=== PATIENT | female | born 1980 | race Caucasian/White ===

== ENCOUNTER 2017-03-24 08:17 | Emergency (ER) | payer BC ==
[2017-03-24 08:25] VITALS: BP 151/88
[2017-03-24] MEDS ORDERED: IBUPROFEN 400 MG TABLET PO STA (09:03)
[2017-03-24] MEDS ORDERED: ACETAMINOPHEN 325 MG TABLET PO STA (09:03)
--- NOTE | 2017-03-24 09:06 | ED Physician Documentation ---
History of Present Illness - Stated complaint Stated Complaint: RT ANKLE INJ - Chief complaint Chief Complaint: Ext Problem - Additonal information Additional information: hx from pt 36 f denies preg slipped on wet stairs and fell hurting R ankle and R 4th finger distal phalange no head or neck or chest or abd injury Review of Systems : denies: Now EGA Musculoskeletal: reports: Extremity pain, Joint pain, Pain with weight bearing PD PAST MEDICAL HISTORY - Present Medications Home Medications: Ambulatory Orders Medication Instructions Recorded Confirmed Escitalopram Oxalate [Lexapro] 20 mg PO DAILY 03/24/17 03/24/17 Ibuprofen [Motrin] 400 mg PO Q6H PRN #30 tablet 03/24/17 Lisinopril 2.5 mg PO DAILY 03/24/17 03/24/17 Pravastatin [Pravachol] 10 mg PO DAILY 03/24/17 03/24/17 clonazePAM [KlonoPIN] 1 mg PO DAILY 03/24/17 03/24/17 traMADol [Ultram] 50 mg PO Q6H PRN #15 tablet 03/24/17 - Allergies Allergies/Adverse Reactions: Allergies Allergy/AdvReac Type Severity Reaction Status Date / Time No Known Drug Allergies Allergy Verified 03/24/17 08:25 PD ED PE NORMAL - Vitals Vital signs reviewed: Yes - Cardiac Cardiac: RRR - Respiratory Respiratory: No respiratory distress, Clear bilaterally - Extremities Extremities: Other (R 4th finger, nl ROM, nl cascade, TTP DIP and distal phalange, slightly dec sensation, brisk cap refill, R ankle TTP siddharth mall lateral > mediual, no prox tib fib pain, no foot TTP, MSV intact, no sig swelling or deformity) Results - Vitals Vitals: Vital Signs - 24 hr 03/24/17 08:22 Temperature 36.0 C L Heart Rate 80 Respiratory 16 Rate Blood Pressure 151/88 H O2 Saturation 100 Oxygen O2 Source Room air - Rads (name of study) ankle Radiology: See rad report (medial mall fx) finger Radiology: See rad report (neg) Procedures - Splint (location) short leg Splint applied by: Tech Type of splint: Short leg, Posterior, Stirrup Other: Patient tolerated well, No complications, Neurovascular intact, Crutches provided Departure - Departure Disposition: 01 Home, Self Care Clinical Impression: Fracture, ankle Qualifiers: Encounter type: initial encounter Fracture type: closed Laterality: right Qualified Code(s): S82.891A - Other fracture of right lower leg, initial encounter for closed fracture Condition: Good Instructions: ED Fx Ankle General, ED Crutch Walking, ED Splint Care Fiberglass Follow-Up: Aura Guerin PA [Primary Care Provider] - [facility] [Provider Group] (you need to call Monday to schedule ) Prescriptions: Ibuprofen [Motrin] 400 mg PO Q6H PRN #30 tablet PRN Reason: Pain traMADol [Ultram] 50 mg PO Q6H PRN #15 tablet PRN Reason: Severe Pain Comments: You have a broken ankle. You need to wear the splin for the weekend, use the crutches, not bear any weight at all. Next week you need to follow up with orthopedics to be changed to a cast. The pain will be less now that the anlke is immobilized For mild pain you can take tylenol and motrion For severe pain you can take tramadol but try to minimize your use of this medication if possible Also your blood pressure is high today - please follow up with your PMD for a recheck Forms: Activity restrictions
[2017-03-24] MEDS ORDERED: IBUPROFEN 400 MG TABLET PO ONE (09:33)
[2017-03-24] MEDS ORDERED: ACETAMINOPHEN 325 MG TABLET PO ONE (09:33)
--- NOTE | 2017-03-24 09:43 | XRAY Preliminary Report ---
Exam: XR HAND 3 VIEW RT IMPRESSION: No fracture or radiopaque foreign body in the subcutaneous tissue. [facility] SITE ID: [id number]
--- NOTE | 2017-03-24 09:46 | XRAY Report ---
EXAM: RIGHT HAND RADIOGRAPHY EXAM DATE: 03/24/2017 09:26 AM. CLINICAL HISTORY: Pain 3rd finger. COMPARISON: None. TECHNIQUE: 3 views. FINDINGS: Bones: Normal. No fractures or bone lesions. Joints: Normal. No subluxations. Soft Tissues: Normal. No soft tissue swelling. IMPRESSION: No fracture or radiopaque foreign body in the subcutaneous tissue. [facility] Referring Provider Line: [phone] SITE ID: [id number]
--- NOTE | 2017-03-24 09:47 | XRAY Preliminary Report ---
Exam: XR ANKLE 3 VIEW RT IMPRESSION: Minimally displaced fracture of the medial malleolus. [facility] SITE ID: [id number]
--- NOTE | 2017-03-24 09:50 | XRAY Report ---
EXAM: RIGHT ANKLE RADIOGRAPHY EXAM DATE: 03/24/2017 09:25 AM. CLINICAL HISTORY: Pain, s/p glf. COMPARISON: None. TECHNIQUE: 4 views. FINDINGS: Bones: Minimally displaced fracture of the medial malleolus. Joints: Trace joint effusion. Soft Tissues: Mild soft tissue swelling along the medial aspect of the ankle. IMPRESSION: Minimally displaced fracture of the medial malleolus. [facility] Referring Provider Line: [phone] SITE ID: [id number]
== END 2017-03-24 11:56 | disposition home or self-care (01) ==
LOC: ED 08:17
DX: S82.51XA Displaced fracture of medial malleolus of right tibia, initial encounter for closed fracture (principal); S69.91XA Unspecified injury of right wrist, hand and finger(s), initial encounter; W10.9XXA Fall (on) (from) unspecified stairs and steps, initial encounter
CPT/HCPCS: 29515; 73130; 73610; 99283; A9270

== ENCOUNTER 2017-10-02 07:46 | Outpatient (CLI) | payer BC | END 2017-10-02 07:47 | disposition home or self-care (01) | LOC: LAB.F 07:46 | PROVIDERS: ATTEND Surgery | DX: Z01.812 Encounter for preprocedural laboratory examination (principal); E46 Unspecified protein-calorie malnutrition; E63.9 Nutritional deficiency, unspecified; Z13.0 Encounter for screening for diseases of the blood and blood-forming organs and certain disorders involving the immune mechanism | CPT/HCPCS: 36415; 80053; 80061; 82306; 82607; 82728; 82746; 83036; 83540; 83721; 84425; 84443; 84466; 84481; 85025; 85610; 85730 ==

== ENCOUNTER 2017-10-04 08:20 | Outpatient (CLI) | payer BC ==
[2017-10-04 09:47] LABS: BASOPHILS % (AUTO) 0.5 %; EOSINOPHILS # (AUTO) 0.1 10^3/uL (0.0-0.7); EOSINOPHILS % (AUTO) 1.7 %; HGB - HEMOGLOBIN 12.9 g/dL (12.0-16.0); LYMPHOCYTES % (AUTO) 25.4 %; MEAN CORPUSCULAR HEMOGLOBIN 27.7 pg (27.0-31.0); MEAN CORPUSCULAR HGB CONC 33.3 g/dL (32.0-36.0); MEAN CORPUSCULAR VOLUME 83.3 fL (81.0-99.0); MEAN PLATELET VOLUME 8.3 fL (7.9-10.8); MONOCYTES # (AUTO) 0.4 10^3/uL (0.0-1.0); MONOCYTES % (AUTO) 4.9 %; NEUTROPHILS # (AUTO) 5.2 10^3/uL (1.5-6.6); NEUTROPHILS % (AUTO) 67.5 %; PLT - PLATELET COUNT 256 10^3/uL (130-450); RED BLOOD COUNT 4.65 10^6/uL (4.20-5.40); RED CELL DISTRIBUTION WIDTH 13.5 % (12.0-15.0); WHITE BLOOD COUNT 7.7 x10^3/uL (4.8-10.8)
[2017-10-04 09:54] LABS: INR 1.1 (0.8-1.2); PT - PROTHROMBIN TIME 12.4 secs (9.9-12.6)
[2017-10-04 10:04] LABS: % IRON SATURATION 11 % (20-50); ALBUMIN/GLOBULIN RATIO 1.1 (1.0-2.2); ALKALINE PHOSPHATASE 63 IU/L (42-121); ALT ALANINE AMINOTRANSFERASE 20 IU/L (10-60); AST ASPARTATE AMINOTRANSFERASE 22 IU/L (10-42); BILIRUBIN,TOTAL 0.5 mg/dL (0.2-1.0); BUN - BLOOD UREA NITROGEN 12 mg/dL (6-20); CALCIUM 8.8 mg/dL (8.5-10.3); CARBON DIOXIDE - CO2 24 mmol/L (21-32); CHLORIDE 100 mmol/L (101-111); CHOL/HDL RATIO 5.1 (<4.4); CHOLESTEROL 199 mg/dL; CREATININE 0.6 mg/dL (0.4-1.0); GFR - MDRD 111 (>89); GLUCOSE 92 mg/dL (70-100); HDL CHOLESTEROL 39 mg/dL; IRON 43 ug/dL (28-170); LDL CHOLESTEROL,CALCULATED 105 mg/dL; LDL/HDL RATIO 2.7 (<4.4); SODIUM 134 mmol/L (135-145); TOTAL IRON BINDING CAPACITY 392 ug/dL (250-450); TOTAL PROTEIN 7.5 g/dL (6.7-8.2); TRANSFERRIN 280 mg/dL (192-382); VLDL CHOLESTEROL 55 mg/dL
[2017-10-04 10:11] LABS: HB2 TOTAL 14.3 g/dL; HEMOGLOBIN A1C 0.49 g/dL; HEMOGLOBIN A1C % 5.3 % (4.6-6.2)
[2017-10-04 10:15] LABS: THYROID STIMULATING HORMONE 2.86 uIU/mL (0.34-5.60)
[2017-10-04 10:22] LABS: FERRITIN 18.4 ng/mL (11.0-306.8)
[2017-10-04 10:26] LABS: FOLATE 23.09 ng/mL (5.90 - >24.8)
== END 2017-10-04 08:21 | disposition home or self-care (01) ==
LOC: LAB 08:20
PROVIDERS: ATTEND Surgery
DX: Z01.812 Encounter for preprocedural laboratory examination (principal); E46 Unspecified protein-calorie malnutrition; Z13.0 Encounter for screening for diseases of the blood and blood-forming organs and certain disorders involving the immune mechanism
CPT/HCPCS: 36415; 80053; 80061; 82306; 82607; 82728; 82746; 83036; 83540; 83721; 84436; 84443; 84466; 84481; 85025; 85610; 85730

== ENCOUNTER 2017-10-06 08:23 | Outpatient (CLI) | payer BC | END 2017-10-06 08:24 | disposition home or self-care (01) | LOC: LAB 08:23 | PROVIDERS: ATTEND Surgery | DX: Z01.812 Encounter for preprocedural laboratory examination (principal); Z13.0 Encounter for screening for diseases of the blood and blood-forming organs and certain disorders involving the immune mechanism; E46 Unspecified protein-calorie malnutrition; E63.9 Nutritional deficiency, unspecified | CPT/HCPCS: 84425 ==

== ENCOUNTER 2017-10-13 07:55 | Outpatient (CLI) | payer BC | END 2017-10-13 07:56 | disposition home or self-care (01) | LOC: LAB.F 07:55 | PROVIDERS: ATTEND Registered Nurse Community Health | DX: Z01.812 Encounter for preprocedural laboratory examination (principal); E63.9 Nutritional deficiency, unspecified | CPT/HCPCS: 36415; 84425; 85730; 93005 ==

== ENCOUNTER 2018-05-10 08:59 | Outpatient (CLI) | payer BC ==
[2018-05-10 17:53] LABS: BASOPHILS % (AUTO) 0.4 %; EOSINOPHILS # (AUTO) 0.1 10^3/uL (0.0-0.7); EOSINOPHILS % (AUTO) 0.9 %; LYMPHOCYTES # (AUTO) 1.3 10^3/uL (1.5-3.5); LYMPHOCYTES % (AUTO) 23.1 %; MEAN CORPUSCULAR HEMOGLOBIN 28.5 pg (27.0-31.0); MEAN CORPUSCULAR HGB CONC 32.1 g/dL (32.0-36.0); MEAN CORPUSCULAR VOLUME 88.7 fL (81.0-99.0); MEAN PLATELET VOLUME 10.4 fL (7.9-10.8); MONOCYTES # (AUTO) 0.3 10^3/uL (0.0-1.0); MONOCYTES % (AUTO) 5.8 %; NEUTROPHILS # (AUTO) 3.9 10^3/uL (1.5-6.6); NEUTROPHILS % (AUTO) 69.8 %; PLT - PLATELET COUNT 228 10^3/uL (130-450); RED BLOOD COUNT 4.57 10^6/uL (4.20-5.40); RED CELL DISTRIBUTION WIDTH 13.8 % (12.0-15.0); WHITE BLOOD COUNT 5.6 x10^3/uL (4.8-10.8)
[2018-05-10 18:13] LABS: HB2 TOTAL 13.9 g/dL; HEMOGLOBIN A1C 0.43 g/dL
[2018-05-10 18:23] LABS: THYROID STIMULATING HORMONE 1.8 uIU/mL (0.34-5.60)
[2018-05-10 18:26] LABS: % IRON SATURATION 22 % (20-50); ALBUMIN 3.9 g/dL (3.2-5.5); ALBUMIN/GLOBULIN RATIO 1.4 (1.0-2.2); ALKALINE PHOSPHATASE 65 IU/L (42-121); ALT ALANINE AMINOTRANSFERASE 68 IU/L (10-60); AST ASPARTATE AMINOTRANSFERASE 28 IU/L (10-42); BILIRUBIN,TOTAL 0.9 mg/dL (0.2-1.0); BUN - BLOOD UREA NITROGEN 11 mg/dL (6-20); CALCIUM 9.2 mg/dL (8.5-10.3); CARBON DIOXIDE - CO2 29 mmol/L (21-32); CHLORIDE 105 mmol/L (101-111); CHOL/HDL RATIO 4.1 (<4.4); CHOLESTEROL 149 mg/dL; CREATININE 0.5 mg/dL (0.4-1.0); GFR - MDRD 137 (>89); GLUCOSE 88 mg/dL (70-100); HDL CHOLESTEROL 36 mg/dL; IRON 68 ug/dL (28-170); LDL CHOLESTEROL,CALCULATED 90 mg/dL; LDL/HDL RATIO 2.5 (<4.4); SODIUM 139 mmol/L (135-145); TOTAL IRON BINDING CAPACITY 315 ug/dL (250-450); TOTAL PROTEIN 6.7 g/dL (6.7-8.2); TRANSFERRIN 225 mg/dL (192-382); VLDL CHOLESTEROL 23 mg/dL
[2018-05-10 18:30] LABS: FERRITIN 28.9 ng/mL (11.0-306.8)
[2018-05-10 18:32] LABS: FOLATE 11.05 ng/mL (5.90 - >24.8)
== END 2018-05-10 09:00 | disposition home or self-care (01) ==
LOC: LAB.F 08:59
PROVIDERS: ATTEND Nurse Practitioner Acute Care
DX: Z13.0 Encounter for screening for diseases of the blood and blood-forming organs and certain disorders involving the immune mechanism (principal); Z13.29 Encounter for screening for other suspected endocrine disorder; K90.9 Intestinal malabsorption, unspecified; E63.9 Nutritional deficiency, unspecified
CPT/HCPCS: 36415; 80053; 80061; 81599; 82306; 82607; 82728; 82746; 83036; 83525; 83540; 83721; 84425; 84443; 84466; 85025

== ENCOUNTER 2018-12-28 09:41 | Outpatient (CLI) | payer BC ==
[2018-12-28 17:40] LABS: BASOPHILS % (AUTO) 0.3 %; EOSINOPHILS # (AUTO) 0.1 10^3/uL (0.0-0.7); EOSINOPHILS % (AUTO) 0.9 %; HGB - HEMOGLOBIN 12.8 g/dL (12.0-16.0); LYMPHOCYTES # (AUTO) 1.9 10^3/uL (1.5-3.5); LYMPHOCYTES % (AUTO) 29.3 %; MEAN CORPUSCULAR HGB CONC 30.8 g/dL (32.0-36.0); MEAN PLATELET VOLUME 11.4 fL (7.9-10.8); MONOCYTES # (AUTO) 0.4 10^3/uL (0.0-1.0); MONOCYTES % (AUTO) 5.4 %; NEUTROPHILS # (AUTO) 4.1 10^3/uL (1.5-6.6); NEUTROPHILS % (AUTO) 63.8 %; PLT - PLATELET COUNT 249 10^3/uL (130-450); RED BLOOD COUNT 4.57 10^6/uL (4.20-5.40); RED CELL DISTRIBUTION WIDTH 13.2 % (12.0-15.0); WHITE BLOOD COUNT 6.5 x10^3/uL (4.8-10.8)
[2018-12-28 18:34] LABS: HB2 TOTAL 13.9 g/dL; HEMOGLOBIN A1C 0.44 g/dL
[2018-12-28 18:36] LABS: % IRON SATURATION 22 % (20-50); ALBUMIN/GLOBULIN RATIO 1.4 (1.0-2.2); ALKALINE PHOSPHATASE 46 IU/L (42-121); ALT ALANINE AMINOTRANSFERASE 13 IU/L (10-60); AST ASPARTATE AMINOTRANSFERASE 14 IU/L (10-42); BILIRUBIN,TOTAL 0.9 mg/dL (0.2-1.0); BUN - BLOOD UREA NITROGEN 11 mg/dL (6-20); CALCIUM 9.4 mg/dL (8.5-10.3); CARBON DIOXIDE - CO2 27 mmol/L (21-32); CHLORIDE 104 mmol/L (101-111); CHOL/HDL RATIO 3.6 (<4.4); CHOLESTEROL 179 mg/dL; CREATININE 0.5 mg/dL (0.4-1.0); GFR - MDRD 137 (>89); GLUCOSE 82 mg/dL (70-100); HDL CHOLESTEROL 50 mg/dL; IRON 69 ug/dL (28-170); LDL CHOLESTEROL,CALCULATED 104 mg/dL; LDL/HDL RATIO 2.1 (<4.4); SODIUM 139 mmol/L (135-145); THYROID STIMULATING HORMONE 1.58 uIU/mL (0.34-5.60); TOTAL IRON BINDING CAPACITY 315 ug/dL (250-450); TOTAL PROTEIN 6.9 g/dL (6.7-8.2); TRANSFERRIN 225 mg/dL (192-382); VLDL CHOLESTEROL 25 mg/dL
[2018-12-28 18:44] LABS: FERRITIN 31.2 ng/mL (11.0-306.8)
[2018-12-28 18:46] LABS: FOLATE 11.06 ng/mL (5.90 - >24.8)
== END 2018-12-28 09:42 | disposition home or self-care (01) ==
LOC: LAB.S 09:41
PROVIDERS: ATTEND Surgery
DX: E63.9 Nutritional deficiency, unspecified (principal); Z98.84 Bariatric surgery status; E46 Unspecified protein-calorie malnutrition; K90.0 Celiac disease
CPT/HCPCS: 36415; 80053; 80061; 81599; 82306; 82607; 82728; 82746; 83036; 83525; 83540; 83721; 84425; 84443; 84466; 85025

== ENCOUNTER 2019-02-07 08:00 | Outpatient (CLI) | payer BC ==
[2019-02-07 21:49] LABS: BASOPHILS % (AUTO) 0.6 %; EOSINOPHILS # (AUTO) 0.1 10^3/uL (0.0-0.7); EOSINOPHILS % (AUTO) 1.9 %; HGB - HEMOGLOBIN 11.4 g/dL (12.0-16.0); LYMPHOCYTES # (AUTO) 2.5 10^3/uL (1.5-3.5); LYMPHOCYTES % (AUTO) 36.7 %; MEAN CORPUSCULAR HEMOGLOBIN 28.7 pg (27.0-31.0); MEAN CORPUSCULAR VOLUME 89.7 fL (81.0-99.0); MEAN PLATELET VOLUME 11.4 fL (7.9-10.8); MONOCYTES # (AUTO) 0.6 10^3/uL (0.0-1.0); MONOCYTES % (AUTO) 8.7 %; NEUTROPHILS # (AUTO) 3.5 10^3/uL (1.5-6.6); NEUTROPHILS % (AUTO) 51.8 %; PLT - PLATELET COUNT 277 10^3/uL (130-450); RED BLOOD COUNT 3.97 10^6/uL (4.20-5.40); RED CELL DISTRIBUTION WIDTH 13.1 % (12.0-15.0); WHITE BLOOD COUNT 6.8 x10^3/uL (4.8-10.8)
[2019-02-07 21:52] LABS: BUN - BLOOD UREA NITROGEN 12 mg/dL (6-20); CALCIUM 8.8 mg/dL (8.5-10.3); CARBON DIOXIDE - CO2 25 mmol/L (21-32); CHLORIDE 105 mmol/L (101-111); CREATININE 0.6 mg/dL (0.4-1.0); CRP - C-REACTIVE PROTEIN < 1.0 mg/dL (0-1.0); GFR - MDRD 111 (>89); GLUCOSE 75 mg/dL (70-100); SODIUM 141 mmol/L (135-145)
== END 2019-02-07 23:59 | disposition home or self-care (01) ==
LOC: LAB.R 08:00
PROVIDERS: ATTEND Internal Medicine Infectious Disease
DX: M86.8X8 Other osteomyelitis, other site (principal)
CPT/HCPCS: 80048; 85025; 85651; 86140

== ENCOUNTER 2019-02-14 08:45 | Outpatient (CLI) | payer BC ==
[2019-02-14 15:04] LABS: BASOPHILS % (AUTO) 0.4 %; EOSINOPHILS # (AUTO) 0.1 10^3/uL (0.0-0.7); EOSINOPHILS % (AUTO) 2.2 %; LYMPHOCYTES % (AUTO) 21.2 %; MEAN CORPUSCULAR HEMOGLOBIN 28.7 pg (27.0-31.0); MEAN CORPUSCULAR VOLUME 89.7 fL (81.0-99.0); MEAN PLATELET VOLUME 11.8 fL (7.9-10.8); MONOCYTES # (AUTO) 0.3 10^3/uL (0.0-1.0); MONOCYTES % (AUTO) 6.7 %; NEUTROPHILS # (AUTO) 3.2 10^3/uL (1.5-6.6); NEUTROPHILS % (AUTO) 69.3 %; PLT - PLATELET COUNT 225 10^3/uL (130-450); RED BLOOD COUNT 4.18 10^6/uL (4.20-5.40); RED CELL DISTRIBUTION WIDTH 12.7 % (12.0-15.0); WHITE BLOOD COUNT 4.6 x10^3/uL (4.8-10.8)
== END 2019-02-14 23:59 | disposition home or self-care (01) ==
LOC: LAB.R 08:45
PROVIDERS: ATTEND Internal Medicine Infectious Disease
DX: M86.8X8 Other osteomyelitis, other site (principal)
CPT/HCPCS: 85025; 85651

== ENCOUNTER 2019-02-15 15:00 | Outpatient (CLI) | payer BC ==
[2019-02-15 17:25] LABS: BUN - BLOOD UREA NITROGEN 12 mg/dL (6-20); CALCIUM 8.9 mg/dL (8.5-10.3); CARBON DIOXIDE - CO2 26 mmol/L (21-32); CHLORIDE 104 mmol/L (101-111); CREATININE 0.6 mg/dL (0.4-1.0); GFR - MDRD 111 (>89); GLUCOSE 75 mg/dL (70-100); SODIUM 139 mmol/L (135-145)
[2019-02-15 17:29] LABS: CRP - C-REACTIVE PROTEIN < 1.0 mg/dL (0-1.0)
== END 2019-02-15 23:59 | disposition home or self-care (01) ==
LOC: LAB.R 15:00
PROVIDERS: ATTEND Internal Medicine Infectious Disease
DX: M86.8X8 Other osteomyelitis, other site (principal)
CPT/HCPCS: 80048; 86140

== ENCOUNTER 2019-02-21 08:30 | Outpatient (CLI) | payer BC ==
[2019-02-21 11:47] LABS: BASOPHILS % (AUTO) 0.5 %; EOSINOPHILS # (AUTO) 0.1 10^3/uL (0.0-0.7); HGB - HEMOGLOBIN 12.5 g/dL (12.0-16.0); LYMPHOCYTES # (AUTO) 1.6 10^3/uL (1.5-3.5); LYMPHOCYTES % (AUTO) 35.2 %; MEAN CORPUSCULAR HEMOGLOBIN 29.1 pg (27.0-31.0); MEAN CORPUSCULAR HGB CONC 32.5 g/dL (32.0-36.0); MEAN CORPUSCULAR VOLUME 89.7 fL (81.0-99.0); MEAN PLATELET VOLUME 11.5 fL (7.9-10.8); MONOCYTES # (AUTO) 0.3 10^3/uL (0.0-1.0); NEUTROPHILS # (AUTO) 2.4 10^3/uL (1.5-6.6); NEUTROPHILS % (AUTO) 55.1 %; PLT - PLATELET COUNT 237 10^3/uL (130-450); RED BLOOD COUNT 4.29 10^6/uL (4.20-5.40); RED CELL DISTRIBUTION WIDTH 12.6 % (12.0-15.0); WHITE BLOOD COUNT 4.4 x10^3/uL (4.8-10.8)
[2019-02-21 12:01] LABS: BUN - BLOOD UREA NITROGEN 10 mg/dL (6-20); CALCIUM 9.1 mg/dL (8.5-10.3); CARBON DIOXIDE - CO2 27 mmol/L (21-32); CHLORIDE 101 mmol/L (101-111); CREATININE 0.6 mg/dL (0.4-1.0); GFR - MDRD 111 (>89); GLUCOSE 80 mg/dL (70-100); SODIUM 138 mmol/L (135-145)
[2019-02-21 12:02] LABS: CRP - C-REACTIVE PROTEIN < 1.0 mg/dL (0-1.0)
== END 2019-02-21 23:59 | disposition home or self-care (01) ==
LOC: LAB.R 08:30
PROVIDERS: ATTEND Internal Medicine Infectious Disease
DX: M86.8X8 Other osteomyelitis, other site (principal)
CPT/HCPCS: 80048; 85025; 85651; 86140

== ENCOUNTER 2019-02-28 08:00 | Outpatient (CLI) | payer BC ==
[2019-02-28 09:45] LABS: BASOPHILS % (AUTO) 0.4 %; EOSINOPHILS # (AUTO) 0.1 10^3/uL (0.0-0.7); EOSINOPHILS % (AUTO) 2.4 %; HGB - HEMOGLOBIN 11.8 g/dL (12.0-16.0); LYMPHOCYTES % (AUTO) 22.2 %; MEAN CORPUSCULAR HEMOGLOBIN 29.1 pg (27.0-31.0); MEAN CORPUSCULAR HGB CONC 32.7 g/dL (32.0-36.0); MEAN CORPUSCULAR VOLUME 89.1 fL (81.0-99.0); MEAN PLATELET VOLUME 11.4 fL (7.9-10.8); MONOCYTES # (AUTO) 0.4 10^3/uL (0.0-1.0); MONOCYTES % (AUTO) 7.5 %; NEUTROPHILS # (AUTO) 3.1 10^3/uL (1.5-6.6); NEUTROPHILS % (AUTO) 67.1 %; PLT - PLATELET COUNT 194 10^3/uL (130-450); RED BLOOD COUNT 4.05 10^6/uL (4.20-5.40); RED CELL DISTRIBUTION WIDTH 12.6 % (12.0-15.0); WHITE BLOOD COUNT 4.7 x10^3/uL (4.8-10.8)
[2019-02-28 10:18] LABS: BUN - BLOOD UREA NITROGEN 8 mg/dL (6-20); CARBON DIOXIDE - CO2 26 mmol/L (21-32); CHLORIDE 104 mmol/L (101-111); CREATININE 0.5 mg/dL (0.4-1.0); GFR - MDRD 137 (>89); GLUCOSE 91 mg/dL (70-100); SODIUM 139 mmol/L (135-145)
[2019-02-28 11:20] LABS: CRP - C-REACTIVE PROTEIN < 1.0 mg/dL (0-1.0)
== END 2019-02-28 23:59 | disposition home or self-care (01) ==
LOC: LAB.R 08:00
PROVIDERS: ATTEND Internal Medicine Infectious Disease
DX: M86.8X8 Other osteomyelitis, other site (principal)
CPT/HCPCS: 80048; 85025; 85651; 86140

== ENCOUNTER 2019-03-07 08:30 | Outpatient (CLI) | payer BC ==
[2019-03-07 10:06] LABS: BASOPHILS % (AUTO) 0.4 %; EOSINOPHILS # (AUTO) 0.1 10^3/uL (0.0-0.7); EOSINOPHILS % (AUTO) 1.7 %; HGB - HEMOGLOBIN 12.2 g/dL (12.0-16.0); LYMPHOCYTES # (AUTO) 1.8 10^3/uL (1.5-3.5); LYMPHOCYTES % (AUTO) 33.6 %; MEAN CORPUSCULAR HEMOGLOBIN 28.2 pg (27.0-31.0); MEAN CORPUSCULAR HGB CONC 31.9 g/dL (32.0-36.0); MEAN CORPUSCULAR VOLUME 88.4 fL (81.0-99.0); MEAN PLATELET VOLUME 11.3 fL (7.9-10.8); MONOCYTES # (AUTO) 0.3 10^3/uL (0.0-1.0); MONOCYTES % (AUTO) 5.5 %; NEUTROPHILS # (AUTO) 3.1 10^3/uL (1.5-6.6); NEUTROPHILS % (AUTO) 58.4 %; PLT - PLATELET COUNT 267 10^3/uL (130-450); RED BLOOD COUNT 4.32 10^6/uL (4.20-5.40); RED CELL DISTRIBUTION WIDTH 12.6 % (12.0-15.0); WHITE BLOOD COUNT 5.3 x10^3/uL (4.8-10.8)
[2019-03-07 10:40] LABS: BUN - BLOOD UREA NITROGEN 12 mg/dL (6-20); CARBON DIOXIDE - CO2 25 mmol/L (21-32); CHLORIDE 109 mmol/L (101-111); CREATININE 0.5 mg/dL (0.4-1.0); GFR - MDRD 137 (>89); GLUCOSE 86 mg/dL (70-100); SODIUM 140 mmol/L (135-145)
[2019-03-07 10:42] LABS: CRP - C-REACTIVE PROTEIN < 1.0 mg/dL (0-1.0)
== END 2019-03-07 23:59 | disposition home or self-care (01) ==
LOC: LAB.R 08:30
PROVIDERS: ATTEND Internal Medicine Infectious Disease
DX: M86.8X8 Other osteomyelitis, other site (principal)
CPT/HCPCS: 80048; 85025; 85651; 86140

== ENCOUNTER 2019-04-05 13:28 | Outpatient (CLI) | payer BC ==
--- NOTE | 2019-04-07 22:34 | XRAY Report ---
Reason: SACROCOCCYGEAL DISORDERS Procedure Date: 04/05/2019 Accession Number: [id number] / [id number] Procedure: XRS - Sacrum/Coccyx CPT Code: FULL RESULT: EXAM: SACRUM AND COCCYX RADIOGRAPHY EXAM DATE: 04/05/2019 01:44 PM. HISTORY: Coccygeal pain, no traumatic. COMPARISONS: None. TECHNIQUE: 3 views. FINDINGS: Alignment: Normal. The sacrum and coccyx are normally aligned. Bones: Normal. No fracture or bone lesion. Joints: Normal. The sacroiliac joints and visualized hips are within normal limits. Soft Tissues: Unremarkable. IMPRESSION: Normal sacrum and coccyx radiography. [facility]
== END 2019-04-05 13:29 | disposition home or self-care (01) ==
LOC: DI.S 13:28
PROVIDERS: ATTEND Physician Assistant
DX: M53.3 Sacrococcygeal disorders, not elsewhere classified (principal)
CPT/HCPCS: 72220

== ENCOUNTER 2020-11-03 08:00 | Outpatient (CLI) | payer BC | END 2020-11-03 23:59 | disposition home or self-care (01) | LOC: LAB.S 08:00 | PROVIDERS: ATTEND Physician Assistant | DX: R05 Cough (principal); J06.9 Acute upper respiratory infection, unspecified; Z20.822 Contact with and (suspected) exposure to COVID-19 ==

== ENCOUNTER 2023-11-14 09:42 | Outpatient (CLI) | payer BC ==
--- NOTE | 2023-11-15 10:30 | Mammography Report ---
BILATERAL FIRST EVER DIGITAL SCREENING MAMMOGRAM 3D/2D: 11/14/2023 CLINICAL: Baseline exam. Routine screening. No prior exams were available for comparison. There are scattered areas of fibroglandular density in both breasts (category b / 25%-50% glandular t issue). No significant masses, calcifications, or other findings are seen in either breast. IMPRESSION: NEGATIVE There is no mammographic evidence of malignancy. A 1 year screening mammogram is recommended. Based on the Tyrer Cuzick model (a risk assessment model) the patient's lifetime risk is 8.3% and her 10 year risk is 1.5%. According to the ACR, ACS, and NCCN guidelines, an annual breast MRI exam subhash g with mammogram is recommended if the patient's lifetime risk is 20% or greater. This exam was interpreted at Station ID: [id number]. NOTE: For mammograms, a report in lay terms will be sent to the patient. Approximately 15% of breast malignancies will not be visualized mammographically. In the management of a palpable breast mass, a negative mammogram must not discourage biopsy of a clinically suspicious lesion. Electronically Signed By: Senthil Can M.D. [email or web address]:11/14/2023 16:17:02 ACR BI-RADS Category 1: Negative 3341F PARENCHYMAL PATTERN: (A) - The breast(s) demonstrate(s) scattered fibroglandular densities. BI-RADS CATEGORY: (1) - 1 RECOMMENDATION: (ANNUAL) - Recommend routine annual screening mammography. [id number] 1 year screening LATERALITY: (B)
== END 2023-11-14 09:43 | disposition home or self-care (01) ==
LOC: DI.S 09:42
PROVIDERS: ATTEND Nurse Practitioner Family
DX: Z12.31 Encounter for screening mammogram for malignant neoplasm of breast (principal); R92.323 Mammographic fibroglandular density, bilateral breasts

== ENCOUNTER 2023-12-18 10:37 | Outpatient (CLI) | payer BC ==
--- NOTE | 2023-12-18 20:36 | SLEEP CARE CONSULTATION ---
Information from patient questionnaire entered by Sissy Watson. I have reviewed and concur with the information entered by Sissy Watson. This document represents the service I personally performed and the decisions made by me, Shawna Leonard MD, [facility]. History of Present Illness Service Date and Time: 12/18/2023 1037 Reason for Visit: New patient Chief Complaint: reports: Other (OLD MACHINE UPPDATE SUPPLIES AND MASK) Date of Onset: SEVERAL YRS Usual bedtime: 2330 Time it takes to fall asleep: DEPENDS RESTLESS LEG ISSUES Snores at night: Yes Observed to quit breathing while asleep: Yes Sleeps alone due to snoring: No Number of times waking at night: 2 Reasons for waking at night: reports: Bathroom, Other (NOISE UNKNOWN) Toss, Turn, or Twitch while sleeping: Yes Recalls having dreams: No Usually gets out of bed at: 0645 Feels refreshed in the morning: No Morning headache: No Sleepy or fatigued during the day: Yes Ever fallen asleep while driving: No Takes day naps: Yes Dreams during day naps: No Prior sleep studies: Yes Additional HPI information: Ms. Bob returned today for a follow up of nasal CPAP therapy. She was diagnosed in 2010 with severe obstructive sleep apnea-hypopnea syndrome and was last seen 8 years ago. The [facility] (she [facility] with [facility]). She wears a [employer] full face mask. She continues to use the [employer]ics REM Star CPAP nightly and all through the night. The compliance report shows usage in 90 nights out of the past 90 nights, averaging 8 hours a night. She complained of no particular problem with the device such as soreness on the face, dry nose, epistaxis, nasal congestion or headache. She thinks that the pressure of 11 cmH2O is comfortable. On the CPAP therapy she notices improvement in her sleep quality, and that she wakes up feeling fresher in the morning and more awake/alert during the day. New[place] Sleepiness Scale score is 8. Her notices no snore at all. The average residual AHI is 1.5: and average time in large leak per day is 2,5 hours. 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 Patient is and lives in [place]. Have you smoked in the past 12 months: No Cigarettes per day (20/pack): 20 Years of smokin Quit date: 2004 Smoking Pack Years: 10.0 Alcohol use: Yes Alcohol amount and frequency: 1 WEEK 2 GLASSES WINE 1 A WEEK Caffeine use: Yes Caffeine amount and frequency: 2 CUPS DAILY 2 X ADAY Family History Family history of sleep disordered breathing: Yes Family Hx Sleep Apnea: Mother: Snoring, Sleep apnea - Treated, Father: Snoring, Sleep apnea - Treated, Sibling: Snoring, Sleep apnea - Treated Allergies and Home Medications Known drug allergies: No Drug allergies reviewed: Yes Home medication list reviewed: Yes Allergy and home medication list: Allergies No Known Drug Allergies Allergy (Verified 12/12/23 07:59) Review of Systems Review of systems same as previous: Yes Weight gain over past 5 years: 75 Weight loss over past 5 years: 160 Cardiovascular: reports: high blood pressure, palpitations Gastrointestinal: reports: heartburn Psychiatric: reports: anxiety Ear/Nose/Throat: reports: nasal congestion, wisdom teeth removed Endocrine: reports: sluggishness Immunologic: reports: sneezing Physical Exam Vital signs obtained and entered by: SISSY Huang MA Blood Pressure: 159/92 (LEFT ARM) Cuff size: long Heart Rate: 82 O2 Saturation: 100 Height: 5 ft 8 in Weight: 287 lb 9.6 oz Body Mass Index: 43.7 BMI Classification: Morbidly Obese Neck circumference: 16.5 Impression and Plan IMPRESSION: 1. Obstructive Sleep Apnea-Hypopnea Syndrome, severe, with the patient continuing to do well on nasal CPAP therapy. She has excellent compliance and significant clinical improvement. The current pressure appears effective and comfortable. Overall, she is very satisfied with the treatment and plans to continue with it long-term. No adjustment is necessary today. Because the CPAP is now much older than the useful life of 5 years, I will order the patient a new one and make it an autoCPAP set between 8 and 12 cmH2O. PLAN: 1. Prescription made for an autoCPAP, heated humidifier, and related supplies through [facility] 2. Try to lose weight 3. Return for follow up after one month of using the CPAP. Counseling Topics: Weight control Prescriptions: Auto CPAP Follow up with [facility] in: 1-2 months Visit Type: In Office Time Spent with Patient (minutes): 15 Provider Statement: I spent 100% of the Face to Face Visit with the patient with greater than 50% spent counseling the patient and coordination of care.
[2023-12-18 20:45] VITALS: BP 159/92; O2SAT 100
== END 2023-12-18 10:38 | disposition home or self-care (01) ==
LOC: SC 10:37
PROVIDERS: ATTEND Internal Medicine Pulmonary Disease
DX: G47.33 Obstructive sleep apnea (adult) (pediatric) (principal); E66.01 Morbid (severe) obesity due to excess calories; Z68.41 Body mass index [BMI] 40.0-44.9, adult; Z87.891 Personal history of nicotine dependence
CPT/HCPCS: 99202; 99212